=== PATIENT | female | born 1990 | race Caucasian/White ===

== ENCOUNTER 2024-07-27 06:37 | Emergency (ER) | payer SELFPAY ==
[2024-07-27 06:39] VITALS: BP 257/152
[2024-07-27 07:20] VITALS: BP 188/113
--- NOTE | 2024-07-27 07:56 | ED.GENMED ---
History of Present Illness
General
Chief Complaint: Skin Surface Trauma
Time Seen by Provider: 07/27/24 07:24
History of Present Illness
History of Present Illness:
34-year-old female presents to the emergency department for evaluation of a right index finger laceration sustained while attempting to cut with a knife this morning. Bleeding is now controlled. Last tetanus unknown
Review of Systems
Review of Systems
Allergies reviewed?: Yes
All Other Systems: ROS reviewed and negative except as documented in HPI and ROS
Phy Exam
Physical Exam
Physical Exam:
GEN: Well appearing, NAD, WDWN
HEENT: Oral mucosa moist, no scleral icterus
Cardiac: Regular rate
Lung: No respiratory distress, no tachypnea
MSK: No gross deformity or injuries
Skin: Good color, no pallor or jaundice, no rashes. Subcentimeter curvilinear flap laceration to the distal aspect of the right index finger with no active bleeding
Neuro: AO x3, moves all extremities freely
Psych: Calm, cooperative
Course
Orders/Labs/Results
Orders:
Orders
07/27/24 07:56
Tetanus/Diphth/Acelpertussis [Adacel] 0.5 ml IM .ONCE ONE
Vital Signs
Initial and Last Documented VS:
Initial Vital Signs
Temp Pulse Resp BP Pulse Ox
97.4 F 70 22 257/152 100
07/27/24 06:39 07/27/24 06:39 07/27/24 06:39 07/27/24 06:39 07/27/24 06:39
Last Documented Vital Signs
Temp Pulse Resp BP Pulse Ox
97.4 F 70 20 179/108 100
07/27/24 06:39 07/27/24 08:23 07/27/24 08:23 07/27/24 08:23 07/27/24 08:23
MDM/Problems Addressed
MDM/Problems Addressed:
Will provide for hemostatic purposes. Patient counseled on her marked hypertension in the emergency department
*Critical Care Note
Total Time (30-74mins, 75-104mins- exclusive of procedures): Not Applicable
ED Attending Note
-
Portions of this chart may have been created with voice recognition software.� Occasional wrong word or��sound alike� substitutions may have occurred due to the inherent limitations of voice recognition software.
Discharge Plan
Departure
Patient Disposition: Home (Routine Discharge)
Date of Disposition: 07/27/24
Time of Disposition: 07:57
Patient with high blood pressure during this ER visit?: Yes
Discharge Problem:
Laceration of right index finger, Uncontrolled hypertension
Instructions: Laceration Repair With Glue (DC)
Prescriptions:
No Action
amlodipine 5 mg Tablet
5 mg PO DAILY
spironolactone 25 mg Tablet
25 mg PO DAILY
econazole 1 % Cream
1 applic TOPICAL PRN PRN (Reason: Rash)
losartan 25 mg Tablet
25 mg PO DAILY
albuterol sulfate 90 mcg/actuation Hfa Aerosol Inhaler
2 puff INHALATION PRN PRN (Reason: SOB, Wheezes)
budesonide-formoterol [Symbicort] 160-4.5 mcg/actuation Hfa Aerosol Inhaler
1 puff INHALATION ONCE
Wegovy 2.4 mg/0.75 mL Pen Injector
2.4 mg SC BAIG
acetaminophen [acetaminophen] 325 mg tablet
650 mg PO Q6HPRN PRN (Reason: mild pain) Qty: 14 0RF
tramadol 50 mg tablet
25 mg PO Q6HPRN PRN (Reason: severe pain/breakthrough pain) Qty: 8 0RF
ibuprofen 600 mg tablet
600 mg PO Q6H PRN (Reason: pain) Qty: 14 0RF
Interventions
Interventions:
*Risk Screen - Suicide Last Done: 07/27/24 06:39
*General Assessment Last Done: 07/27/24 08:20
*Neglect/Abuse Screening Last Done: 07/27/24 06:39
*ED COVID-19 Vaccine History Last Done: 07/27/24 08:20
*Nursing Disposition Last Done: 07/27/24 08:38
ED-Skin Assessment Last Done: 07/27/24 08:19
Discharge Date and Time
Discharge Date/Time: 07/27/24 08:30
Print Language: THAI
[2024-07-27] MEDS: ADACEL 0.5 ML IM (08:20)
[2024-07-27 08:23] VITALS: BP 179/108
== END 2024-07-27 08:30 | disposition home or self-care (01) ==
LOC: EMR 06:37
PROVIDERS: EMERGENCY PHYSICIAN Emergency Medicine; FAMILY PHYSICIAN Family Medicine
DX: S61.210A Laceration without foreign body of right index finger without damage to nail, initial encounter (principal); W26.0XXA Contact with knife, initial encounter; I10 Essential (primary) hypertension; Z23 Encounter for immunization
CPT/HCPCS: 90471; 99282; 90715